=== PATIENT | male | born 1960 | race Caucasian/White ===

== ENCOUNTER 2019-11-27 18:19 | Emergency (ER) | payer OTHER, SELFPAY ==
--- NOTE | ~2019-11-27 | CT_ITS ---
EXAMINATION: CT abdomen pelvis w con DATE: 11/27/2019 19:47 INDICATION: Right flank pain TECHNIQUE: Computed tomography (CT) of the abdomen and pelvis was performed with 100 cc Omnipaque 350 intravenous contrast. Automated exposure control and iterative reconstruction technique were employe d. Exam dose: 1370.90 mGy-cm total exam DLP. COMPARISON: None. FINDINGS: There is mild atelectasis at the lung bases. Heart size is within normal range. No pericard ial or pleural effusion. The liver, gallbladder, bile ducts, spleen, pancreas and pancreatic duct are unremarkable. Normal mor phology of the adrenal glands. No renal mass lesion. No urinary tract calculus or hydroureteronephrosis. The urinary bladder and pro state gland are unremarkable. Normal caliber of the abdominal aorta. No intraperitoneal or retroperitoneal or pelvic mass lesion or adenopathy or ascites. No bowel obstruction, bowel wall thickening, pneumatosis or intraperitoneal free air. Small fat-containing umbilical hernia. Diffuse idiopathic skeletal hyperostosis of the lower thoracic spine. Moderately prominent degenerative disease at L5-S1. Bilateral hip osteoarthritis. IMPRESSION: No significant abnormality of the abdomen or pelvis Degenerative changes of thoracic, lumbar spine and hips Reviewed, dictated and finalized at [facility]. Reviewed, dictated and finalized at [facility].
[2019-11-27 18:22] VITALS: BP 134/83; PULSE 73; RESP 18; TEMP 36.2; O2SAT 99
[2019-11-27 19:07] LABS: Basophils Percent Auto 0.8 % (0.2-1.2); Eosinophils Absolute Auto 0.1 K/mm3 (0-0.3); Eosinophils Percent Auto 1.7 % (0-4.4); Hematocrit 46.8 % (42.0-52.0); Hemoglobin 16.3 g/dL (14.0-18.0); Immature Granulocyte Absolute 0.01 K/mm3 (0.00-0.031); Immature Granulocyte Percent A 0.2 % (0-0.5); Lymphocytes Absolute Auto 1.58 K/mm3 (0.9-3.2); Lymphocytes Percent Auto 30.2 % (18.3-44.2); Mean Corpuscular HGB Conc 34.8 g/dl (32-36); Mean Corpuscular Hemoglobin 30.3 pg (26-34); Mean Platelet Volume 10.1 fl (7.4-10.4); Monocytes Absolute Auto 0.6 K/mm3 (0.1-0.6); Monocytes Percent Auto 10.7 % (2.6-8.5); Neutrophils Percent Auto 56.4 % (45.5-73.1); Platelet Count Result 205 k/mm3 (150-375); Red Blood Count 5.38 M/mm3 (4.6-6.20); Red Cell Distribution Width 12.2 % (11.5-14.5); White Blood Count 5.2 K/mm3 (4.5-10.0)
[2019-11-27 19:11] LABS: Add Urine Microscopic? YES; Appearance Urine Clear (Clear); Bilirubin Urine Negative (Negative); Blood Urine Negative (Negative); Color Urine Straw (Yellow); Glucose Urine UA 3+ mg/dL (Negative); Ketones Urine Negative (Negative); Leukocyte Esterase Ur Negative LEU/UL (Negative); Nitrate Urine Negative (Negative); Protein Urine Negative (Negative); RBC Urine 0-2 /hpf (0-2); Specific Grav Ur 1.022 (1.001-1.035); Squamous Epithelial Cell Urine Occasional /hpf (Few); Urobilinogen Urine Negative mg/dL (<2.0); WBC Urine 0-3 /hpf
[2019-11-27 19:17] LABS: Anion Gap 9 mmol/L (8-16); Blood Urea Nitrogen 15 mg/dL (9-20); Calcium 8.8 mg/dL (8.4-10.2); Carbon Dioxide 27 mmol/L (22-30); Chloride 99 mmol/L (98-107); Estimated CRCL calculation 100 ml/min; Estimated Glomerular Filt Rate > 60; Glucose 333 mg/dL (75-110); Potassium 4.2 mmol/L (3.4-5.0); Sodium 135 mmol/L (137-145)
[2019-11-27] MEDS: SODIUM CHLORIDE 0.9% IV 1,000 ML 150 ML IV CONT (19:18)
[2019-11-27 20:22] VITALS: BP 132/79; PULSE 81; RESP 16; O2SAT 100
--- NOTE | 2019-11-27 20:58 | ED.BACK ---
HPI - Back Pain/Injury General Chief Complaint: Back Pain/Injury Stated Complaint: Right Flank Pain Time Seen by Provider: 11/27/19 18:26 Source: patient and family Mode of arrival: ambulatory Limitations: no limitations History of Present Illness HPI Narrative: 59-year-old with no major medical problems here with complaints of low back pain mostly on the right side started this afternoon. Patient states that he was sitting in the couch and had sudden onset of pain on the right side of the back. He denies any trauma. However patient states that they recently bought a house and they are packing. He denies any nausea or vomiting or fever. No history of blood in the urine. He also mentions that he has seen a new primary care doctor at [facility] scheduled to get blood work done on outpatient basis which he has not done yet. MD elicited complaint: back pain Pertinent past history: prior back pain Onset (ago): hour(s) (2) Timing: constant Severity: moderate Pain scale (0-10): 6 Similar Symptoms Previously: No Quality: dull and aching Location: right flank Radiation: none Exacerbating factors: none Relieving factors: none Associated symptoms: denies other symptoms Related Data Allergies Allergy/AdvReac Type Severity Reaction Status Date / Time No Known Allergies Allergy Verified 11/27/19 18:24 Review of Systems Review of Systems: All systems reviewed & are unremarkable except as noted in HPI and below Constitutional: Constitutional: Reports no additional constitutional complaints Eyes: Eyes: Reports as per HPI ENT: Reports system reviewed and no additional complaints, except as documented Cardiovascular: Cardiovascular: Reports no additional cardiovascular complaints Respiratory: Respiratory: Reports no additional respiratory complaints Gastrointestinal: Gastrointestinal: Reports no additional gastrointestinal complaints Genitourinary: Genitourinary: Reports no additional male genitourinary complaints Musculoskeletal: Musculoskeletal: Reports as per HPI Neurologic: Reports system reviewed and no additional complaints, except as documented PMFSH Social History Social History Gender identity (if verbalized by the patient): Male Exam Narrative: Exam Narrative: GENERAL: Well-appearing, well-nourished, and in no acute distress. HEAD: Normocephalic, atraumatic. EYES: PERRLA and EOMI. ENT: Nares clear, no rhinorrhea or epistaxis. Mucous membranes moist. NECK: Supple. CHEST: Clear to auscultation. No respiratory distress. HEART: Regular rate and rhythm. No murmur heard. Normal peripheral pulses. ABDOMEN: Soft, nontender, nondistended, normal active bowel sounds. No CVA tenderness EXTREMITIES: Normal range of motion. No edema. SKIN: Warm, dry, no rash. NEURO: No focal deficits. Alert and oriented x3. PSYCH: Normal mood and affect. Course Course Emergency Course: Patient declined pain medication however did order CBC chemistry and CT T of the abdomen and pelvis Reevaluation(s) Reevaluation #1: Patient was comfortably lying on bed in no discomfort. I discussed lab, CT findings with the patient and family. As per the blood work his blood sugars are elevated suggestive of more diabetes, patient is unaware that he is diabetic. I advised him to follow strict diet, take Glucophage 500 mg twice a day till he sees his doctor. Vital Signs Vital signs: Vital Signs Temperature 36.2 C L 11/27/19 18:22 Pulse Rate 73 11/27/19 18:22 Respiratory Rate 18 11/27/19 18:22 Blood Pressure 134/83 11/27/19 18:22 Pulse Oximetry 99 11/27/19 18:22 Temperature 36.2 C L 11/27/19 18:22 Pulse Rate 81 11/27/19 20:22 Respiratory Rate 16 11/27/19 20:22 Blood Pressure 132/79 11/27/19 20:22 Pulse Oximetry 100 11/27/19 20:22 MDM - Back Pain/Injury MDM Narrative Medical decision making narrative: With a sudden onset of back pain on the right flank area most likely could be kidney stone will or
[2019-11-27] MEDS: INSULIN HUMAN REGULAR (*BKC) 100 UNITS/ML 6 UNITS SUB-Q (21:14)
[2019-11-27 21:22] LABS: Glucose Point of Care 240 (65-105)
[2019-11-27 21:31] LABS: Hemoglobin A1C 10.2 % (<5.7)
== END 2019-11-27 21:56 | disposition home or self-care (01) ==
PROVIDERS: Emergency Medicine; Emergency Provider Family Medicine; PCP Family Medicine
DX: S39.012A Strain of muscle, fascia and tendon of lower back, initial encounter (principal); E11.9 Type 2 diabetes mellitus without complications; M48.14 Ankylosing hyperostosis [Forestier], thoracic region; M47.817 Spondylosis without myelopathy or radiculopathy, lumbosacral region; M16.0 Bilateral primary osteoarthritis of hip; X58.XXXA Exposure to other specified factors, initial encounter
CPT/HCPCS: 36415; 74177; 80048; 81001; 83036; 85025; 96360; 96361; 99284; J1815; J7030; Q9967

== ENCOUNTER 2023-05-13 20:43 | Emergency (ER) | payer OTHER, SELFPAY ==
--- NOTE | ~2023-05-13 | CT_ITS ---
CT of the Abdomen and Pelvis: Indication: Abdominal pain Technique: 2.5 mm axial scans were obtained through the abdomen and pelvis following intravenous adm inistration of 100 cc of Omnipaque 350. Dose reduction technique was used on this scan by utilizing a utomated exposure control and iterative reconstruction technique. The dose-length product (DLP) was 1 422.21 mGy-cm. COMPARISON: 11/27/2019 Findings: Scans through the lung bases are unremarkable. The liver, spleen, pancreas, gallbladder, adrenals and kidneys are within normal limits. No evidence of aortic aneurysm. No lymphadenopathy. No bowel obstruction or bowel wall thickening. There is no evidence to suggest acute appendicitis. Images through the pelvis were performed. Urinary bladder unremarkable. Prostate and seminal vesicles are unremarkable. No ascites. There is mildly displaced fracture of the right L2 transverse process, and probable left L1 transverse process. Impression: Fractures of the left L1 transverse process, and of the right L2 transverse process. Reviewed, dictated and finalized at [facility]. KER TENDER Impression: Fractures of the left L1 transverse process, and of the right L2 transverse pro cess.
[2023-05-13 21:00] VITALS: BP 144/70; PULSE 75; RESP 20; TEMP 36.3; O2SAT 100
[2023-05-14] MEDS: ACETAMINOPHEN 500 MG TABLET 1000 MG PO (00:43)
[2023-05-14] MEDS: ONDANSETRON INJ 4 MG/2 ML VIAL IV PUSH (00:44)
[2023-05-14] MEDS: MORPHINE SULFATE (*CRX) 4 MG/ML INJ IV PUSH ×2 (00:44→03:24)
--- NOTE | 2023-05-14 00:51 | ED.BACK ---
HPI - Back Pain/Injury General Chief Complaint: Back Pain/Injury Stated Complaint: fall, lower back pain Time Seen by Provider: 05/13/23 23:16 Source: patient Mode of arrival: ambulatory Limitations: no limitations History of Present Illness HPI Narrative: Patient is a 62-year-old male who presents to the ED with report of right back and flank pain. Patient reports he was working on his hot tub tonight when he slipped and fell and landed with his back directly against a seat of the hot tub. C/o significant pain to R mid/lateral back, worse with movement and deep breathing. Denies feeling short of breath. Denies abdominal pain. Denies N/V, saddle anesthesia, bowel or bladder incontinence, weakness of lower extremities. Denies head injury or LOC. Denies any other areas of pain. Patient takes diclofenac daily. He took Flexeril prior to arrival without much improvement. Related Data Allergies Allergy/AdvReac Type Severity Reaction Status Date / Time No Known Allergies Allergy Verified 05/13/23 22:30 Review of Systems Review of Systems: CONSTITUTIONAL: Denies fever, chills, or sweats. GASTROINTESTINAL: See HPI. GENITOURINARY: Denies dysuria or hematuria. MUSCULOSKELETAL: See HPI. NEUROLOGIC: Denies headache, dizziness, numbness, or weakness. All systems reviewed & are unremarkable except as noted in HPI and below PMFSH Social History Social History Gender identity (if verbalized by the patient): Male Exam Narrative: GENERAL: Uncomfortable appearing, obese with BMI of 35.3, non-toxic, in mild acute distress due to pain. HEAD: Normocephalic, atraumatic. RESPIRATORY: Airway patent, respirations nonlabored. Clear to auscultation bilaterally, no rales, rhonchi, wheezing. No splinting. No focal lung sounds. No decreased lung sounds. CARDIOVASCULAR: Regular rate and rhythm without murmurs, rubs, or gallops. ABDOMINAL: Soft, mild tenderness throughout right mid/lower lateral abdomen. Normoactive BS. MUSCULOSKELETAL: Moves all extremities. No gross deformities. No significant midline thoracic or lumbar spinal tenderness. Right-sided paraspinal muscle tenderness, just to right of spine. Focal tenderness to palpation in right lumbosacral region, R posterolateral rib cage. SKIN: Warm, dry, normal color. NEURO: A&O X3. Speech clear. Cranial nerves II-XII grossly intact. No ataxic movements. PSYCHIATRIC: Appropriate mood and affect. Normal interaction. Course Vital Signs Vital signs: Vital Signs Temperature 97.4 F L 05/13/23 21:00 Pulse Rate 75 05/13/23 21:00 Respiratory Rate 20 05/13/23 21:00 Blood Pressure 144/70 H 05/13/23 21:00 Pulse Oximetry 100 05/13/23 21:00 Oxygen Delivery Room Air 05/13/23 21:00 Temperature 97.4 F L 05/13/23 21:00 Pulse Rate 75 05/13/23 21:00 Respiratory Rate 20 05/13/23 21:00 Blood Pressure 144/70 H 05/13/23 21:00 Pulse Oximetry 100 05/13/23 21:00 Oxygen Delivery Room Air 05/13/23 21:00 MDM - Back Pain/Injury MDM Narrative Medical decision making narrative: Patient presented to ED status post fall, complaining of right mid back pain/flank pain. Vital signs stable upon arrival. Patient uncomfortable appearing, but neurologically intact. Denies any neurologic symptoms, no evidence of cauda equina or cord compression at this time. Will obtain imaging to rule out traumatic findings and attempt pain control. Basic laboratory studies were unremarkable. CT scan of abdomen and pelvis showed acute fractures of L1 and L2 transverse processes. No other abdominal abnormalities or traumatic findings. Patient was updated on imaging results. Pain is improved with supportive therapy in the ED. Discussed discharge home with pain management, follow-up with Neurosurgery as an outpatient. Patient in agreement with this plan. Discussed general restrictions, very strict return precautions. Signs and
[2023-05-14 01:02] LABS: Basophils Absolute Auto 0.1 K/mm3 (0.0-0.1); Basophils Percent Auto 0.7 % (0.2-1.2); Eosinophils Absolute Auto 0.3 K/mm3 (0-0.3); Hematocrit 47.9 % (42.0-52.0); Hemoglobin 16.2 g/dL (14.0-18.0); Immature Granulocyte Absolute 0.02 K/mm3 (0.00-0.031); Immature Granulocyte Percent A 0.3 % (0-0.5); Lymphocytes Absolute Auto 2.39 K/mm3 (0.9-3.2); Lymphocytes Percent Auto 32.8 % (18.3-44.2); Mean Corpuscular HGB Conc 33.8 g/dl (32-36); Mean Corpuscular Hemoglobin 29.8 pg (26-34); Mean Corpuscular Volume 88.2 fl (80-100); Mean Platelet Volume 9.4 fl (7.4-10.4); Monocytes Absolute Auto 0.8 K/mm3 (0.1-0.6); Neutrophils Absolute Auto 3.7 K/mm3 (1.3-6.7); Neutrophils Percent Auto 51.2 % (45.5-73.1); Platelet Count Result 223 k/mm3 (150-375); Red Blood Count 5.43 M/mm3 (4.6-6.20); Red Cell Distribution Width 12.3 % (11.5-14.5); White Blood Count 7.3 K/mm3 (4.5-10.0)
[2023-05-14 01:05] LABS: Alanine Aminotransferase 54 U/L (6-50); Albumin Level 4.6 g/dL (3.5-5.1); Alkaline Phosphatase 62 U/L (38-126); Anion Gap 9 mmol/L (8-16); Aspartate Amino Transferase 33 U/L (17-59); Bilirubin,Total 0.6 mg/dL (0.2-1.3); Blood Urea Nitrogen 19 mg/dL (9-20); Calcium 9.3 mg/dL (8.4-10.2); Carbon Dioxide 28 mmol/L (22-30); Chloride 103 mmol/L (98-107); Estimated CRCL calculation 98 ml/min; Estimated Glomerular Filt Rate > 60; Glucose 205 mg/dL (65-110); Sodium 140 mmol/L (137-145)
[2023-05-14] MEDS: oxyCODONE HCL (*CRX) 5 MG TAB IR PO (03:24)
== END 2023-05-14 03:25 | disposition home or self-care (01) ==
PROVIDERS: Emergency Provider Physician Assistant; PCP Family Medicine
DX: S32.018A Other fracture of first lumbar vertebra, initial encounter for closed fracture (principal); S32.028A Other fracture of second lumbar vertebra, initial encounter for closed fracture; Z79.84 Long term (current) use of oral hypoglycemic drugs; W01.198A Fall on same level from slipping, tripping and stumbling with subsequent striking against other object, initial encounter
CPT/HCPCS: 36415; 74177; 80053; 85025; 96374; 96375; 96376; 99284; A9270; J2270; J2405; Q9967

== ENCOUNTER 2023-05-23 13:34 | Emergency (ER) | payer OTHER, SELFPAY ==
--- NOTE | ~2023-05-23 | XR_ITS ---
EXAMINATION: XR hip RT 2V w AP pelvis DATE: 05/23/2023 14:24 INDICATION: Right hip pain. TECHNIQUE: An anteroposterior view of the pelvis and 2 views of right hip were obtained. COMPARISON: None. FINDINGS: Bone alignment is normal. No fracture. There is moderate right hip osteoarthritis and mild left hip osteoarthritis. IMPRESSION: 1. Moderate right hip osteoarthritis and mild left hip osteoarthritis. Reviewed, dictated and finalized at [facility]. PROGRAMMER
[2023-05-23 13:46] VITALS: BP 142/85; PULSE 76; RESP 16; TEMP 36.3; O2SAT 100
--- NOTE | 2023-05-23 14:58 | ED.GENADULT ---
HPI - General Adult General Chief complaint: Extremity Injury, Lower Stated complaint: R HIP PAIN Time Seen by Provider: 05/23/23 14:00 Source: patient Mode of arrival: ambulatory Limitations: no limitations History of Present Illness HPI narrative: 62-year-old male presents to [facility] with complaint of acute right hip pain started in 1900 yesterday. Patient endorses that 10 days ago he fell and was seen in the emergency department, diagnosed with fractures of L1 and L2 at that time. Patient endorses at hip pain had acute onset last night when he leaned forward to sit up from a chair. Patient states at that time he a pop with acute pain of 9/10. Patient is currently treating is low back pain with oxycodone, Flexeril, lidocaine patch, and Tylenol as prescribed and recommended by emergency department provider. Patient states that pain is tolerable when sitting still and that increases to 9/10 with movement. Patient denies any loss of bladder or bowel control. Pt denies abdominal pain , pain radiating down into the legs, numbness, tingling. Patient endorses that 8 years ago he was diagnosed with moderate to severe degeneration of bilateral hips. Related Data Home Medications Medication Instructions Recorded Confirmed cyclobenzaprine 5 mg tablet mg 05/23/23 diclofenac sodium 75 mg mg PO 05/23/23 tablet,delayed release glipizide 5 mg tablet mg 05/23/23 oxycodone 5 mg tablet mg 05/23/23 rosuvastatin 5 mg tablet mg 05/23/23 Allergies Allergy/AdvReac Type Severity Reaction Status Date / Time No Known Allergies Allergy Verified 05/13/23 22:30 Review of Systems Review of Systems: All systems reviewed & are unremarkable except as noted in HPI and below Constitutional: Constitutional: Reports no additional constitutional complaints Eyes: Eyes: Reports no additional eye complaints ENT: Reports system reviewed and no additional complaints, except as documented Cardiovascular: Cardiovascular: Reports no additional cardiovascular complaints, Denies chest pain and Denies dyspnea Respiratory: Respiratory: Reports no additional respiratory complaints, Denies cough and Denies dyspnea Gastrointestinal: Gastrointestinal: Reports other ( denies loss of bowel control) Genitourinary: Genitourinary: Reports other ( denies loss of bladder control) Musculoskeletal: Musculoskeletal: Reports abnormal gait and Reports arthralgias ( right hip) Neurologic: Reports system reviewed and no additional complaints, except as documented, Denies Sensory deficit (Neuro) and Denies tingling Psychiatric: Psychiatric: Reports no additional psychiatric complaints PMFSH Social History Social History Gender identity (if verbalized by the patient): Male Comments At the time of my signature, I reviewed and agree with the nursing past medical, surgical, social, and family history. There is no relevant family history pertinent to the patient complaint. Exam Const: General: cooperative, no acute distress, well developed, alert, uncomfortable, well groomed and well nourished Nutritional Appearance: well nourished Orientation/consciousness: patient oriented x3 Limitations: no limitations HENMT: Head: normal to inspection Ears: external ears normal Face/Nose/Sinus: Normal external nose present, Normal nares present, normal facial exam, No erythema and No edema Face and sinus: normal facial exam, no erythema and no edema Mouth: Yes Normal oral and palatal mucosa present Eyes: General: appearance normal, both eyes and all related structures Neck: Neck: normal visual inspection, full ROM and no meningeal signs Lymphatic: no lymphadenopathy noted and no lymphedema noted Chest: Chest palpation & inspection: normal inspection of the chest Resp: Effort & Inspection: normal respiratory effort and able to speak in complete sentences Auscultation: clear to auscultation bi
== END 2023-05-23 15:16 | disposition home or self-care (01) ==
PROVIDERS: Emergency Provider Nurse Practitioner Family; PCP Family Medicine
DX: M16.11 Unilateral primary osteoarthritis, right hip (principal); M25.551 Pain in right hip; E11.9 Type 2 diabetes mellitus without complications; M16.0 Bilateral primary osteoarthritis of hip
CPT/HCPCS: 73502; 99213; G0463